=== PATIENT | female | born 1995 | race African-American/Black ===

== ENCOUNTER 2025-03-21 09:02 | Emergency (ER) | payer OTHER, SELFPAY ==
[2025-03-21 09:22] VITALS: BP 139/62; PULSE 98; RESP 16; TEMP 36.6; O2SAT 98; BMI 25.6
[2025-03-21 09:45] LABS: Appearance Urine Cloudy; Glucose Urine UA Negative (Negative); PH 6.5 (5.0-9.0); Specific Gravity - Urine 1.020 (1.005-1.025); UMIC TRIGGER UACC YES
[2025-03-21 09:46] LABS: UPreg QC Valid YES
[2025-03-21 09:47] LABS: UACC Culture Trigger YES
[2025-03-21 09:59] LABS: Cannabinoid Screen Urine POSITIVE (Not Detect)
--- NOTE | 2025-03-21 10:28 | ED_ITS ---
HPI - Medical Clearance General Chief complaint: Medical Clearance Stated complaint: medical clearance, preg test Time Seen by Provider: 03/21/25 10:28 Source: patient Mode of arrival: ambulatory Limitations: no limitations History of Present Illness ED Provider: Viviana Harrington PA-C HPI Narrative: Patient is a 30 year old assigned female at with a history of previous presenting to the emergency department today for medical clearance to enter the Cl program and a test. Patient states that she needs medical clearance to enter the Cl program and is also concerned she may be so she'd like to be tested. Patient denies any complaints at this time. Patient denies any abdominal pain, vaginal bleeding, or discharge. Related Information Previous Rx's ?Medication ?Instructions ?Recorded vit no.95-ferrous 1 tab PO DAILY #30 tabs 03/05 fumarate 28 mg-folic acid 800 mcg tablet () Allergies Allergy/AdvReac Type Severity Reaction Status Date / Time No Known Allergies Allergy Verified 03/21/25 09:24 Review of Systems Constitutional: Constitutional: Reports as per HPI Eyes: Eyes: Reports as per HPI ENT: Reports as per HPI Cardiovascular: Cardiovascular: Reports as per HPI Respiratory: Respiratory: Reports as per HPI Gastrointestinal: Gastrointestinal: Reports as per HPI Genitourinary: Genitourinary: Reports as per HPI Musculoskeletal: Musculoskeletal: Reports as per HPI Integumentary/Breasts: Skin/Breast: Reports as per HPI Neurologic: Reports as per HPI Psychiatric: Psychiatric: Reports as per HPI Endocrine: Endocrine: Reports as per HPI Hematologic/Lymphatic: Hematologic/Lymphatic: Reports as per HPI Allergic/Immunologic: Allergic/Immunologic: Reports as per HPI [facility] Past Medical History Attestation statement: The following information was validated with the patient. Source: old records reviewed and nursing notes reviewed Social History Social History Advance Directives: No Advance Directives Information Provided: No Physical Exam Vital Signs: Vital Signs: Last Vital Signs Temp 97.9 F 03/21/25 11:10 Pulse 98 03/21/25 11:10 Resp 16 03/21/25 11:10 BP 139/62 03/21/25 11:10 Pulse Ox 98 03/21/25 11:10 O2 Del Method Room Air 03/21/25 11:10 BMI result Body Mass Index 25.6 Const: General: cooperative, no acute distress, alert and awake Nutritional Appearance: well nourished Orientation/consciousness: patient oriented x3 HEENT: Head: Yes normal to inspection and Yes atraumatic Ears: hearing grossly normal bilaterally and external ears normal General nose exam: Normal external nose present, no nasal discharge noted and no epistaxis Face and sinus: Yes normal facial exam, No abrasion and No laceration Mouth: Normal oral and palatal mucosa present, no drooling and no muffled voice Eyes: General: appearance normal, both eyes and all related structures Periorbital: periorbital findings normal Eyelids: Yes eyelids normal Conjunctivae: conjunctivae normal Pupils: Equal, round and reactive pupils present EOM: EOMs intact bilaterally Neck: Neck: Yes normal visual inspection and Yes full ROM Resp: Effort & Inspection: normal respiratory effort and able to speak in complete sentences Neuro: General: patient oriented x3, moves all extremities and CN's II-XI intact bilaterally Cranial nerves: Yes Equal, round and reactive pupils present Cognition (Neuro): normal cognition Extrem: General: Yes normal to inspection, Yes full ROM and Yes capillary refill normal Psych: Appearance: grossly normal Mental Status: mental status grossly normal Affect: normal affect Attitude: cooperative Thought process: Normal thought process present Thought content: Normal thought content present Insight: Good insight present (Psych) Medical Decision Making Medical Decision Making MDM Narrative: Patient is a 30 year old assigned female at with a history of previous presenting to the emergency department today for medical clearance to enter the Cl program and a test. Patient's physical exam was as noted in the physical exam portion of this note. Patient's urine showed small leuks with 6-10 WBC but is grossly contaminated with >20 squamous cells. Given absence of symptoms - and contaminated sample, will await culture. Patient's urine test was positive. I explained my physical exam findings as well as all test results to the patient. I answered all questions asked by the patient. I stressed the importance of the patient taking her medication as directed (either prescribed or as the over the counter packaging recommends). I stressed the importance of the patient following up with her primary care provider and an OBGYN. I stressed the importance of the patient returning to the emergency department immediately if she were to develop any vaginal bleeding, vaginal discharge, dizziness, shortness of breath, difficulty breathing, chest pain, blurry vision, loss of vision, nausea, vomiting, abdominal pain, fever, chills, back pain, or any other complaints. Patient verbalized agreement and understanding with this treatment plan and discharge. Differential Diagnosis Differential Diagnoses: The differential diagnosis associated with the presentation includes Medical clearance Admission/Observation Consideration of admission/observation: Escalation of care including admission/observation considered Patient would have been admitted to the hospital had her work up had any findings where hospital admission was appropriate and her clinical presentation warranted hospital admission. Lab Data [facility] Lab Attestation statement: I reviewed the patient's lab results. My interpretation of these results are in the [facility] Rationale portion of this note. Labs: Lab Results 03/21/25 Range/Units 09:34 Urine Color Yellow Urine Appearance Cloudy Urine pH 6.5 (5.0-9.0) Ur Specific [place] 1.020 (1.005-1.025) Urine Protein Negative (Neg-Trace) mg/dL Urine Glucose (UA) Negative (Negative) mg/dL Urine Ketones Negative (Negative) mg/dL Urine Blood Negative (Negative) Urine Nitrite Negative (Negative) Ur Leukocyte Esterase Small (1+) H (Negative) Urine RBC 0-2 (0-2) /HPF Urine WBC 6-10 H (0-5) /HPF Ur Squamous Epith Cells >20 (0-2) /HPF Urine Bacteria 4+ (None Seen) Hyaline Casts 0-2 (0-2) /LPF Urine Test POSITIVE H (NEGATIVE) Urine Opiates Screen Not Detected (Not Detect) Ur Buprenorphine Scrn Not Detected (Not Detect) ng/mL Ur Oxycodone Screen Not Detected (Not Detect) ng/mL Urine Methadone Screen Not Detected (Not Detect) ng/mL Urine Fentanyl Screen Not Detected (Not Detect) Ur Barbiturates Screen Not Detected (Not Detect) Ur Phencyclidine Scrn Not Detected (Not Detect) Ur Amphetamines Screen Not Detected (Not Detect) U Benzodiazepines Scrn Not Detected (Not Detect) Urine Cocaine Screen Not Detected (Not Detect) U Marijuana (THC) Screen POSITIVE H (Not Detect) Discharge Plan Discharge Clinical Impression: , Normal physical examination Patient Disposition: Home, Self-Care Instructions: (ED), Normal Exam (ED) Additional Instructions: Your medically cleared to attend your program. You are . Please take your vitamin and follow up with an OBGYN. IF you are prescribed home medications and/or you are taking over the counter medications at home - it is very important you continue to do so as prescribed / directed unless told otherwise. Follow up with a primary care provider. Return to the emergency department immediately if your symptoms worsen or if you develop any numbness, tingling, dizziness, shortness of breath, difficulty breathing, chest pain, blurry vision, loss of vision, nausea, vomiting, abdominal pain, fever, chills, back pain, or any other complaints. If you do not have an OBGYN - call any of the below numbers to establish and follow up with an OBGYN provider. [facility] OBGYN [address] [facility] [phone] [facility] [address] [facility] [address] [phone] OBGYN and Midwifery [address] [phone] If you do not have a primary care provider - call any of the below numbers to establish and follow up with a primary care provider. [facility] Primary Care ([place]) [phone] [facility], [address] [facility] Primary Care ([address] [place]) [phone] [place] [address], [address] [facility], [address] [facility] Primary Care ([address] [place]) [phone] [place] [address], [address] [facility], [address] [facility] Primary Care ([place]) [phone] [place] [address] [facility], [address] [facility] Family Medicine [phone] [facility] [place], [address] Please see the information below about our Patient Portal. If you are not yet enrolled in the [facility] Patient Portal, you will receive an enrollment email invitation following your visit to any [facility] setting. You may also self-enroll in the Patient Portal by visiting our website: [email or web address] The following information is required to access the Patient Portal: - Your [facility] Medical Record Number - Your personal home email address (must match what is in your electronic medical record, Registration staff can assist with this) - Name - Date of Capabilities of the Patient Portal: - Message some providers - View upcoming appointments - Access your health summary, medical history, and visit history - View current conditions and allergies - View procedure and lab results - View your medications, including guidelines, side effects, and precautions - Complete pre-appointment questionnaires requested by your provider - Ready summary reports of your office visits and procedures To access the Patient Portal Mobile Sukhjinder, follow these directions: - Search [employer]ossierView in the S[employer]hj[employer] Store or [employer] Store - Download the Sukhjinder - Search for [facility] - Enter your login/password Prescriptions: New PNV no.95-ferrous fumarate-FA [] 28 mg iron- 800 mcg tablet 1 tab PO DAILY Qty: 30 0RF Interventions: ED Discharge Assessment Last Done: 03/21/25 11:10 Discharge Date/Time: 03/21/25 11:11 Print Language: Mauritanian
--- OUTSIDE RECORDS SUMMARY | 2025-03-21 10:57 | XMS_ITS ---
Author Name [facility] Organization Unknown Care Team Organization Name Specialty Phone Email Start Date End Da te [facility] Jewell Gama Primary Care 09/16/2022 024 [facility] JEANNINE PINA Primary Care 03/19/2022
--- OUTSIDE RECORDS SUMMARY | 2025-03-21 10:57 | XMS_ITS | Encounter Summary ---
Author Organization [facility] [place] [address] Care Team Providers Care Outsole Splicer Name Role Phone Jewell Gama MD Primary Care Provider [phone] Encounter Details Date Type Department Care Team (Late st Contact Info) Description 11/28/2024 Lab Requisition [facility] - Main Lab [address] [place] [id number] Trudi Campo, [facility] [address] [place] [address] Other [facility] (current) drug therapy Social History Tobacco Use Types Packs/Day Years Used Date Smoking Tobacco: Former Smokeless Tobacco: Never Alcohol Use Standard Drinks/Week Comments No 0 (1 standard drink = 0.6 oz pur e alcohol) Comments Unknown Sex and Gender Information Value Date Recorded Sex Assigned at Not on file Legal Sex Female 8:22 AM EST Gender Identity Not on file Sexual Orientation Not on file documented as of this encounter Plan of Treatment Not on file documented as of this encounter Procedures Procedure Name Priority Date/Time Associated Diagnosis Comments BASIC METABOLIC PANEL Routine 11/28/2024 7:00 AM EDT Other [facility] (current) drug therapy documented in this encounter Results * Basic metabolic panel (11/28/2024 7:00 AM EDT) Sodium 138 133 - 145 mmol/L LAB CHEMISTRY METHOD 11/28/2024 10:24 AM [facility] Potassium 4.0 3.5 - 5.5 mmol/L LAB CHEMISTRY METHOD 11/28/2024 10:24 AM [facility] Chloride 106 96 - 110 mmol/L LAB CHEMISTRY METHOD 11/28/2024 10:24 AM [facility] CO2 29 21 - 32 mmol/L LAB CHEMISTRY METHOD 11/28/2024 10:24 AM [facility] Anion Gap 3 3 - 11 LAB CHEMISTRY METHOD 11/28/2024 10:24 AM [facility] Glucose 81 70 - 100 mg/dL LAB CHEMISTRY METHOD 11/28/2024 10:24 AM [facility] BUN 8 5 - 25 mg/dL LAB CHEMISTRY METHOD 11/28/2024 10:24 AM [facility] Creatinine 0.51 0.50 - 1.10 mg/dL LAB CHEMISTRY METHOD 11/28/2024 10:24 AM [facility] eGFR 129 >=60 mL/min/1. 73m2 LAB CHEMISTRY METHOD 11/28/2024 10:24 AM [facility] Comment:Calculation based on the Chronic Kidney Disease Epidemiology Collaboration (CKD-EPI) equation refit without adjustment for race. BUN/Creatinine Ratio 15.7 LAB CHEMISTRY METHOD 11/28/2024 10:24 AM [facility] Calcium 8.9 8.5 - 10.5 mg/dL LAB CHEMISTRY METHOD 11/28/2024 10:24 AM [facility] Blood Venous blood specimen / Unknown Venipuncture / Unknown 11/28/2024 7:00 AM EDT 11/28/2024 9:41 AM EDT us Trudi Campo JAVA DEVELOPMENT MANAGER LAB BLOOD ORDERABLES Final Result [facility] [address] [place], [place] [address] [phone] documented in this encounter Visit Diagnoses Diagnosis Other parts counterman (current) drug therapy documented in this encounter Care Teams Outsole Splicer Relationship Specialty Start Date End Date Jewell Gama MD [address] [place] [phone] PCP - General Internal Medicine 07/14/24 documented as of this encounter
--- OUTSIDE RECORDS SUMMARY | 2025-03-21 10:57 | XMS_ITS | Clinical Summary ---
Author Organization [facility] Address [address] [place] [address] Care Team Providers Care Party Host Name Role Phone Unavailable Primary Care Provider Unavailabl e Source Comments PLEASE NOTE, if this patient is a minor, it may be UNLAWFUL to discuss sensitive information that is contained in these records (such as FAMILY PLANNING, MENTAL HEALTH or SUBSTANCE ABUSE) with the minor patient's parent or other person without the patient's specific authorization.[facility] Medications ibuprofen 800 mg tabletIndicatio ns:Tooth pain Take 1 Tab by mouth 3 (three) times daily as needed for pain 21 Tab 07/12/2019 Active ibuprofen 600 mg tablet Take 1 Tablet by mouth 4 (four) times daily as needed for pain 20 Tablet 03/16/2021 Active amoxicillin (AMOXIL) 500 mg capsule Take 1 Capsule by mouth 3 (three) times daily 21 Capsule 03/16/2021 Active ibuprofen 800 mg tabletIndicatio ns:Oral infection Take 1 Tablet by mouth 3 (three) times daily as needed for pain . Do NOT take more than 4 (four) tablets in 24 (twenty four) hours. 21 Tablet 04/16/2021 Active Social History Tobacco Use Types Packs/Day Years Used Date Smoking Tobacco: Never Assessed Social Connections Answer Date Recorded Connectedness 0 01/31/2024 Financial Resource Strain Answer Date R ecorded Financial Resource Strain 0 2018 Stress Answer Date Recorded Stress 0 02/08/2019 Physical Activity Answer Date Recorded Physical Activity 0 02/08/2019 Food Insecurity Answer Date Recorded Food 0 02/05/2024 Transportation Needs Answer Date Record ed Transportation 0 02/08/2019 Housing Stability Answer Date Recorded Housing 0 02/08/2019 Safety and Environment Answer Date John rded Safety 0 02/08/2019 Utilities Answer Date Recorded Utilities 0 02/08/2019 Employment Answer Date Recorded Stress 0 01/31/2024 Comments Unknown Sex and Gender Information Value Date Recorded Sex Assigned at Not on file Legal Sex Female 9:05 AM PDT Gender Identity Not on file Sexual Orientation Not on file Plan of Treatment Not on file Insurance [place] D[place] [facility] [place] [id number]
--- OUTSIDE RECORDS SUMMARY | 2025-03-21 10:57 | XMS_ITS | Clinical Summary ---
Author Organization [address] Address [address] [place] [phone] Phone Care Team Providers Care Game Manager Name Role Phone Jewell Gama MD Primary Care Provider [phone] Allergies Active Allergy Reactions Criticality Noted Date Comments Other 07/19/2014 Seasonal Allergies Other Reaction(s): Runny Nose/Rhinitis Cough, dry nose or throat Medications acetaminophen (TYLENOL) 325 mg capsule TAKE 2 CAPSULES BY MOUTH EVERY 4 HOURS NEEDED FOR PAIN 08/15/2022 Active fluticasone propionate (FLONASE) 50 mcg/actuation nasal spray SPRAY 2 SPRAYS INTO EACH NOSTRIL EVERY DAY SHAKE GENTLY. CLEAN TIP AND REPLACE CAP AFTER USE. 48 mL 10/12/2024 Active Active Problems Problem Noted Date Diagnosed Date Seasonal allergies 07/19/2014 Anxiety 01/12/2014 Depression 01/12/2014 Migraine 01/12/2014 Immunizations Immunization Administration Dates Next Due DTP 12/28/1998, 5,1994,1993 [id number] (Pentacel) 2mo to less than 5yo 10/16/1995,1994,1994,1993 HPV, Quadrivalent 06/20/2011,09/04/2010,06/14/19 11 Hepatitis B Pediatric (Enger ix B; Recombivax HB) to less than 20 yo 1994,1994,1994 IPV Inactivated polio (Ipol) 6wks and older 12/28/1998,03/15/1995,1994,1994 Influenza trivalent, with preservative (Fluzone; Afluria) 6mo and older 02/27/2022 Influenza, Unspecified 02/27/2022 MMR, measles mumps and rubel la Live (Priorix; M-M-R II) 12mo and older 12/28/1998,01/17/1995 Tdap Tetanus diptheria acell ular pertussis (Boostrix; Adacel) 7yo and older 04/23/2022,04/22/2011 Varicella live (Varivax) 12m o and older 06/20/2011,07/14/1998 Surgical History Surgery Date Site/Laterality Comments OTHER SURGICAL HISTORY PROCEDURE: DENIES PREVIOUS SURGERY Medical History Medical History Date Comments Anxiety 01/12/2014 DX:Anxiety Depression 01/12/2014 DX:Depression Migraine 01/12/2014 DX:Migraine Seasonal allergies 07/19/2014 DX:Seasonal a llergies Family History Medical History Relation Name Comments Multiple myeloma Father No Known Problems Mother Relation Name Status Comments Father (Age 53) Mother Alive Social History Tobacco Use Types Packs/Day Years Used Date Smoking Tobacco: Former Smokeless Tobacco: Never Alcohol Use Standard Drinks/Week Comments No 0 (1 standard drink = 0.6 oz pur e alcohol) Comments Unknown Sex and Gender Information Value Date Recorded Sex Assigned at Not on file Legal Sex Female 8:22 AM EST Gender Identity Not on file Sexual Orientation Not on file Obstetrics History Last Filed Vital Signs Vital Sign Reading Time Taken Comments Blood Pressure 110/78 07/15/2024 2:13 PM EST Pulse 120 07/15/2024 2:13 PM EST Temperature 36.7 C (98.1 F) 07/15/2024 2:13 PM EST Respiratory Rate 14 07/15/2024 2:13 PM EST Oxygen Saturation - - Inhaled Oxygen Concentration - - Weight 52.4 kg (115 lb 8 oz) 07/15/2024 2:13 PM EST Height 157.5 cm (5' 2 ) 07/15/2024 2:13 PM EST Body Mass Index 21.13 07/15/2024 2:13 PM EST Plan of Treatment Health Maintenance Due Date Last Done Comments Hepatitis B Vaccines (4 of 4 - 4-dose series) 1994 1994, 1994, 1994 Cervical Cancer Screening: Pap Smear 2015 HIV Screening 04/20/2022 Hepatitis C Screening 04/20/2022 Social Influencers of Health Screening 04/20/2022 Depression Screening 05/12/2024 COVID-19 Vaccine ( season) 2025 04/02/2022 Influenza Vaccine (#1) 2025 02/27/2022, 2021 Cholesterol Screening (Lipid Panel) 11/27/2029 11/27/2024, 06/17/2022 DTaP,Tdap,and Td Vaccines (8 - Td or Tdap) 04/23/2032 04/23/2022, 04/22/2011, 12/28/1998, Additional history exists RSV Immunization Adult Patients (1 - 1-dose 75+ series) 2069 HIB Vaccines Completed 10/16/1995, 07/11, 1994, Additional history exists IPV Vaccines Completed 12/28/1998, 10/1995, 03/15/1995, Additional history exists MMR Vaccines Completed 12/28/1998, 01/17/1995 HPV Vaccines Completed 06/20/2011, 08/11, 06/14/2010 Varicella Vaccines Completed 06/20/2011, 07/14/1998 Hepatitis A Vaccines Aged Out No long er eligible based on patient's age to complete this topic Meningococcal ACWY Vaccine Aged Out N o longer eligible based on patient's age to complete this topic Meningococcal B Vaccine Aged Out No l onger eligible based on patient's age to complete this topic Pneumococcal Vaccine: Pediatrics (0 to 5 Years) and At-Risk Patients (6 to 49 Years) Aged Out No longer eligible based on patient's age to complete this topic RSV Immunization Patients Under 20 months Aged Out No longer eligible based on patient's age to complete this topic Procedures Procedure Name Priority Date/Time Associated Diagnosis Comments LIPID PANEL WITH REFLEX TO DIRECT LDL Routine 11/27/2024 7:00 AM EDT Other group home (current) drug therapy from Last 3 Months or Most Recently Relevant to Health Maintenance Results * (ABNORMAL) Lipid panel with reflex to direct LDL (11/27/2024 7:00 AM EDT) Cholesterol 146 0 - 200 mg/dL LAB CHEMISTRY METHOD 11/27/2024 1:40 PM EDT [facility] Triglycerides 82 0 - 150 mg/dL LAB CHEMISTRY METHOD 11/27/2024 1:40 PM EDT [facility] HDL 35(L) >=40 mg/dL LAB CHEMISTRY METHOD 11/27/2024 1:40 PM EDT [facility] LDL Calculated 95 0 - 100 mg/dL LAB CHEMISTRY METHOD 11/27/2024 1:40 PM EDT [facility] VLDL Cholesterol Ramakrishna 16.4 mg/dL LAB CHEMISTRY METHOD 11/27/2024 1:40 PM EDT [facility] Non HDL Chol. (LDL+VLDL) 111 <145 mg/dL LAB CHEMISTRY METHOD 11/27/2024 1:40 PM EDT [facility] Chol/HDL Ratio 4.2 0.0 - 4.4 LAB CHEMISTRY METHOD 11/27/2024 1:40 PM EDT [facility] Blood Venous blood specimen / Unknown Venipuncture / Unknown 11/27/2024 7:00 AM EDT 11/27/2024 12:58 PM EDT us Mariam Decker NP LAB BLOOD ORDERABLES Final Resul t [facility] [address] [place] [address], from Last 3 Months or Most Recently Relevant to Health Maintenance Insurance [facility] Care Teams Game Manager Relationship Specialty Start Date End Date Jewell Gama MD [address] [place] [phone] PCP - General Internal Medicine 07/14/24
--- OUTSIDE RECORDS SUMMARY | 2025-03-21 10:57 | XMS_ITS | Encounter Summary ---
Author Organization [facility] [place] [address] Care Team Providers Care Octave Board Racker Name Role Phone Jewell Gama MD Primary Care Provider [phone] Encounter Details Date Type Department Care Team (Late st Contact Info) Description 11/27/2024 Lab Requisition [facility] - Main Lab [address] [facility] [place] [address] Mariam Decker NP [address] [place] [address] Other fci (current) drug therapy Social History Tobacco Use [...] LDL Routine 11/27/2024 7:00 AM EDT Other fci (current) drug therapy HEMOGLOBIN A1C Routine 11/27/2024 7:00 AM EDT Other fci (current) drug therapy GLUCOSE, RANDOM Routine 11/27/2024 7:00 AM EDT Other fci (current) drug therapy documented in this encounter Results * Hemoglobin A1c (11/27/2024 7:00 AM EDT) Pathologist [facility] Hemoglobin A1C 5.5 <6.5 % LAB CHEMISTRY METHOD 11/28/2024 11:33 AM EDT [facility] Mean Bld Glu Estim. 111 mg/dL LAB CHEMISTRY METHOD 11/28/2024 11:33 AM EDT [facility] Blood Venous blood specimen / Unknown Venipuncture / Unknown 11/27/2024 7:00 AM EDT 11/27/2024 12:58 PM EDT Mariam Decker NP LAB BLOOD ORDERABLES Final Resul t [facility] [address] [place] [address], * (ABNORMAL) Lipid panel with reflex to direct LDL (11/27/2024 7:00 AM EDT) [facility] Cholesterol 146 0 - 200 mg/dL LAB CHEMISTRY METHOD 11/27/2024 1:40 PM EDT [facility] Triglycerides 82 0 - 150 mg/dL LAB CHEMISTRY METHOD 11/27/2024 1:40 PM EDT [facility] HDL 35(L) >=40 mg/dL LAB CHEMISTRY METHOD 11/27/2024 1:40 PM EDT [facility] LDL Calculated 95 0 - 100 mg/dL LAB CHEMISTRY METHOD 11/27/2024 1:40 PM EDT [facility] VLDL Cholesterol Ramakrishna 16.4 mg/dL LAB CHEMISTRY METHOD 11/27/2024 1:40 PM EDT [facility] Non HDL Chol. (LDL+VLDL) 111 <145 mg/dL LAB CHEMISTRY METHOD 11/27/2024 1:40 PM EDT [facility] Chol/HDL Ratio 4.2 0.0 - 4.4 LAB CHEMISTRY METHOD 11/27/2024 1:40 PM EDT [facility] Blood Venous blood specimen / Unknown Venipuncture / Unknown 11/27/2024 7:00 AM EDT 11/27/2024 12:58 PM EDT Mariam Decker [employer] LAB BLOOD ORDERABLES Final Resul t Performing Organization Address [facility]/ZIP Co de Phone Number [facility] [address] [place] [address], [place] [phone] * (ABNORMAL) Glucose, random (11/27/2024 7:00 AM EDT) Glucose 64(L) 70 - 100 mg/dL LAB CHEMISTRY METHOD 11/27/2024 1:39 PM EDT [facility] Blood Venous blood specimen / Unknown Venipuncture / Unknown 11/27/2024 7:00 AM EDT 11/27/2024 12:58 PM EDT Mariam Decker NP LAB BLOOD ORDERABLES Final Resul t Performing Organization Address City/[facility] Co de Phone Number [facility] [address] [place] [address], [place] [phone] documented in this encounter Visit Diagnoses Diagnosis Other fci (current) drug therapy documented in this encounter Care Teams Octave Board Racker Relationship Specialty Start Date End Date Jewell Gama MD [address] [place] [phone] PCP - General Internal Medicine 07/14/24 documented as of this encounter
[2025-03-21 11:10] VITALS: BP 139/62; PULSE 98; RESP 16; TEMP 36.6; O2SAT 98
== END 2025-03-21 11:11 | disposition home or self-care (01) ==
PROVIDERS: Emergency Provider Emergency Medicine
DX: Z02.89 Encounter for other administrative examinations (principal); Z32.01 Encounter for pregnancy test, result positive
CPT/HCPCS: 80307; 81001; 81025; 87086; 99282

== ENCOUNTER 2025-03-31 12:51 | Emergency (ER) | payer OTHER, SELFPAY ==
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
--- NOTE | ~2025-03-31 | US_ITS ---
CLINICAL HISTORY: , abd pain, ?IUP US OB 1st Trimester transabdominal and transvaginal Comparison: None provided Findings: Single intrauterine gestational sac. MSD: 0.7 cm. CRL: No pole. EGA: 5 weeks, 2 days. HU: Not reported. Normal yolk sac . Cardiac activity: No pole or cardiac activity. Recommend follow-up in 2-3 weeks. No subchorionic bleed. Right ovary is not visualized. Left ovary 2.8 x 2.1 x 2.6 cm. 1.8 cm dominant follicle. IMPRESSION: Single intrauterine gestational sac estimated 5 weeks, 2 days gestational age by today's ultrasound criteria No pole or cardiac activity, recommend follow-up 2-3 weeks This document has been electronically signed by: Fercho Yeager MD on 03/31/2025 19:51:35
[2025-03-31 13:01] VITALS: BP 132/76; PULSE 96; O2SAT 100
[2025-03-31 13:19] VITALS: BP 110/55; PULSE 82; RESP 20; TEMP 36.7; O2SAT 99; BMI 23.7
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
[2025-03-31 13:50] LABS: MANUAL DIFF FLAG NO
[2025-03-31 13:55] LABS: Hematocrit 35.1 % (37.0-47.0); Hemoglobin 11.5 g/dl (12.0-16.0); Imm Gran Abs Auto 0.01 X10*3/uL (0.00-0.03); Imm Gran Pct Auto 0.2 % (0.0-0.4); Lymphocytes Absolute Auto 2.9 X10*3/uL (1.2-4.9); Mean Corpuscular HGB Conc 32.8 g/dl (31.0-35.0); Mean Corpuscular Hemoglobin 29.3 pg (27.0-33.0); Mean Corpuscular Volume 89.3 fL (80.0-98.0); NRBC Abs Auto 0.000 X10*3/uL (0.0-0.012); NRBC Pct Auto 0.0 /100WBC (0.0-0.2); Platelet Count 299 X10*3/uL (160-400); Red Blood Count 3.93 X10*6/uL (4.20-5.50); White Blood Count 6.1 X10*3/uL (4.8-10.8)
[2025-03-31 14:01] LABS: IDNOW Serial# 08D9AD1C; Strep A Nucleic Acid Negative (Negative)
[2025-03-31 14:08] LABS: Appearance Urine Clear; Glucose Urine UA Negative (Negative); PH 6.0 (5.0-9.0); Specific Gravity - Urine 1.020 (1.005-1.025); UMIC TRIGGER UACC YES
[2025-03-31 14:10] LABS: UPreg QC Valid YES
[2025-03-31 14:12] LABS: Alanine Aminotransferase 11 U/L (0-31); Albumin Level 4.2 g/dL (3.5-5.0); Alkaline Phosphatase 55 U/L (39-117); Anion Gap 10 (12-20); Aspartate Amino Transferase 27 U/L (5-31); Blood Urea Nitrogen 9 mg/dL (9-16); Calcium 8.9 mg/dL (8.4-10.2); Carbon Dioxide 24 mmol/L (22-29); Chloride 108 mmol/L (96-108); Creatinine Clr Calc Pharmacy 107.9; Estimated Glomerular Filt Rate > 60; Lipase 16 U/L (8-78); Potassium 3.5 mmol/L (3.3-5.1); Sodium 138 mmol/L (135-145); Total Protein 6.9 g/dL (6.5-8.0)
[2025-03-31 14:23] LABS: UACC Culture Trigger YES
[2025-03-31 14:30] LABS: Resp Syncy Virus RNA Qual PCR NEGATIVE (Negative); SARS COV2 PCR INHOUSE NEGATIVE (Negative)
[2025-03-31 18:15] VITALS: BP 113/55; PULSE 82; RESP 14; TEMP 36.8; O2SAT 97
[2025-03-31 19:43] VITALS: BP 113/61; PULSE 73; RESP 18; TEMP 36.9; O2SAT 100
--- OUTSIDE RECORDS SUMMARY | 2025-03-31 19:57 | XMS_ITS | Encounter Summary ---
Author Organization [facility] Address [address] [place] [address] Care Team Providers Care Health Safety Coordinator Name Role Phone Jewell Gama MD Primary Care Provider Encounter Details Date Type Department Care Team (Late Contact Info) Description 11/28/2024 Lab Requisition [facility] - Main Lab [address] [facility] [place] [phone] Trudi Campo, [facility] [address] [place] [address] Other fci (current) drug therapy Social History [...] as of this encounter Plan of Treatment Upcoming Encounters Date Type Department Care Team ([facility] Contact Info) Description 04/08/2025 11:00 AM EST Office Visit Adult Medicine [facility] [address] [place] [address] Richard James NP [address] [place] [address] 04/14/2025 9:00 AM EST Office Visit [address] [phone] Jewell Gama MD [address] [place] [address] 04/25/2025 11:30 AM EST Office Visit General Surgery [address] [place] [phone] Edgar Liu MD [address] [place] [phone] 11/29/2025 3:00 PM EDT Office Visit [address] [phone] Jewell Gama MD [address] [place] [address] documented as of this encounter Procedures Procedure Name Priority Date/Time Associated Diagnosis Comments BASIC METABOLIC PANEL Routine 11/28/2024 7:00 AM EDT Other intermodal customer service (current) drug therapy documented in this encounter Results * Basic metabolic panel (11/28/2024 7:00 AM EDT) Sodium 138 133 - 145 mmol/L LAB CHEMISTRY METHOD 11/28/2024 10:24 AM [facility] Potassium 4.0 3.5 - 5.5 mmol/L LAB CHEMISTRY METHOD 11/28/2024 10:24 AM [facility] Chloride 106 96 - 110 mmol/L LAB CHEMISTRY METHOD 11/28/2024 10:24 AM [facility] CO2 29 21 - 32 mmol/L LAB CHEMISTRY METHOD 11/28/2024 10:24 AM [facility] Anion Gap 3 3 - 11 LAB CHEMISTRY METHOD 11/28/2024 10:24 AM EDT [facility] Glucose 81 70 - 100 mg/dL LAB CHEMISTRY METHOD 11/28/2024 10:24 AM EDT [facility] BUN 8 5 - 25 mg/dL LAB CHEMISTRY METHOD 11/28/2024 10:24 AM EDT [facility] Creatinine 0.51 0.50 - 1.10 mg/dL LAB CHEMISTRY METHOD 11/28/2024 10:24 AM EDT [facility] eGFR 129 >=60 mL/min/1. 73m2 LAB CHEMISTRY METHOD 11/28/2024 10:24 AM EDT [facility] Comment:Calculation based on the Chronic Kidney Disease Epidemiology Collaboration (CKD-EPI) equation refit without adjustment for race. BUN/Creatinine Ratio 15.7 LAB CHEMISTRY METHOD 11/28/2024 10:24 AM EDT [facility] Calcium 8.9 8.5 - 10.5 mg/dL LAB CHEMISTRY METHOD 11/28/2024 10:24 AM EDT [facility] Blood Venous blood specimen / Unknown Venipuncture / Unknown 11/28/2024 7:00 AM EDT 11/28/2024 9:41 AM EDT Trudi Campo [facility] BLOOD ORDERABLES Final Result [facility] [address] [place] [address], documented in this encounter Visit Diagnoses Diagnosis Other fci (current) drug therapy documented in this encounter Care Teams Health Safety Coordinator Relationship Specialty Start Date End Date Jewell Gama MD [address] [place] [phone] PCP - General Internal Medicine 07/14/24 documented as of this encounter
--- OUTSIDE RECORDS SUMMARY | 2025-03-31 19:57 | XMS_ITS | Encounter Summary ---
Author Organization [facility] Address [address] [place] [address] Care Team Providers Care Demolition Engineer Name Role Phone Jewell Gama MD Primary Care Provider [phone] Encounter Details Date Type Department Care Team (Late Contact Info) Description 11/27/2024 Lab Requisition [facility] - Main Lab [address] [facility] [place] [address] Mariam Decker NP [address] [place] [address] Other vermin exterminator (current) drug therapy Social History Tobacco Use [...] Upcoming Encounters Date Type Department Care Team ([facility] Contact Info) Description 04/08/2025 11:00 AM EST Office Visit Adult Medicine [address] [phone] Richard James, XIOM[facility] [address] [place] [address] 04/14/2025 9:00 AM EST Office Visit Adult Medicine [address] [phone] Jewell Gama MD [address] [place] [address] 04/25/2025 11:30 AM EST Office Visit General Surgery [address] [place] [address] Edgar Liu MD [address] [place] [address] 11/29/2025 3:00 PM EDT Office Visit Adult Medicine [address] [phone] Jewell Gama MD [address] [place] [address] documented as of this encounter Procedures Procedure Name Priority Date/Time Associated Diagnosis Comments LIPID PANEL WITH REFLEX TO DIRECT LDL Routine 11/27/2024 7:00 AM EDT Other vermin exterminator (current) drug therapy HEMOGLOBIN A1C Routine 11/27/2024 7:00 AM EDT Other vermin exterminator (current) drug therapy GLUCOSE, RANDOM Routine 11/27/2024 7:00 AM EDT Other halfway (current) drug therapy documented in this encounter Results * Hemoglobin A1c (11/27/2024 7:00 AM EDT) Hemoglobin A1C 5.5 <6.5 % LAB CHEMISTRY METHOD 11/28/2024 11:33 AM EDT [facility] Mean Bld Glu Estim. 111 mg/dL LAB CHEMISTRY METHOD 11/28/2024 11:33 AM EDT [facility] Blood Venous blood specimen / Unknown Venipuncture / Unknown 11/27/2024 7:00 AM EDT 11/27/2024 12:58 PM EDT us Mariam Decker NP LAB BLOOD ORDERABLES Final Resul t Performing Organization Address City/[facility]/ZIP Co de Phone Number [facility] [address] [place] [address], [place] [phone] * (ABNORMAL) Lipid panel with reflex to direct LDL (11/27/2024 7:00 AM EDT) [facility] Signature Cholesterol 146 0 - 200 mg/dL LAB CHEMISTRY METHOD 11/27/2024 1:40 PM EDT [facility] Triglycerides 82 0 - 150 mg/dL LAB CHEMISTRY METHOD 11/27/2024 1:40 PM EDT [facility] HDL 35(L) >=40 mg/dL LAB CHEMISTRY METHOD 11/27/2024 1:40 PM EDT [facility] LDL Calculated 95 0 - 100 mg/dL LAB CHEMISTRY METHOD 11/27/2024 1:40 PM EDT [facility] VLDL Cholesterol Ramakrishna 16.4 mg/dL LAB CHEMISTRY METHOD 11/27/2024 1:40 PM EDT [facility] Non HDL Chol. (LDL+VLDL) 111 <145 mg/dL LAB CHEMISTRY METHOD 11/27/2024 1:40 PM EDT [facility] Chol/HDL Ratio 4.2 0.0 - 4.4 LAB CHEMISTRY METHOD 11/27/2024 1:40 PM EDT [facility] Blood Venous blood specimen / Unknown Venipuncture / Unknown 11/27/2024 7:00 AM EDT 11/27/2024 12:58 PM EDT Mariam Decker ELECTRONEURODIAGNOSTIC TECHNOLOGIST LAB BLOOD ORDERABLES Final Resul t Performing Organization Address [place]/[facility]/ZIP Co de Phone Number [facility] [address] [place] [address], [place] [phone] * (ABNORMAL) Glucose, random (11/27/2024 7:00 AM EDT) Glucose 64(L) 70 - 100 mg/dL LAB CHEMISTRY METHOD 11/27/2024 1:39 PM EDT [facility] Blood Venous blood specimen / Unknown Venipuncture / Unknown 11/27/2024 7:00 AM EDT 11/27/2024 12:58 PM EDT Mariam Decker ELECTRONEURODIAGNOSTIC TECHNOLOGIST LAB BLOOD ORDERABLES Final Resul t [facility] [address] [place] [address], documented in this encounter Visit Diagnoses Diagnosis Other halfway (current) drug therapy documented in this encounter Care Teams Demolition Engineer Relationship Specialty Start Date End Date Jewell Gama MD [address] [place] [phone] PCP - General Internal Medicine 07/14/24 documented as of this encounter
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
[2025-03-31 21:48] VITALS: BP 113/61; PULSE 73; RESP 18; TEMP 36.9; O2SAT 100
[2025-04-01 00:11] LABS: Bacterial Vaginosis PCR POSITIVE (Negative); Candida Group PCR NOT DETECTED (Not Detect); Candida glab krusei PCR NOT DETECTED (Not Detect); Trichomonas vaginalis PCR NOT DETECTED (Not Detect)
[2025-04-01 00:43] LABS: CT PCR NOT DETECTED (Not Detect.); NG PCR NOT DETECTED (Not Detect.)
== END 2025-03-31 21:50 | disposition home or self-care (01) ==
PROVIDERS: Physician Assistant; Emergency Provider Emergency Medicine
DX: O26.891 Other specified pregnancy related conditions, first trimester (principal); R10.9 Unspecified abdominal pain; B34.9 Viral infection, unspecified; Z03.818 Encounter for observation for suspected exposure to other biological agents ruled out
CPT/HCPCS: 76801; 80053; 81001; 81025; 81515; 83690; 84702; 85025; 87086; 87491; 87591; 87637; 87651; 99284

== ENCOUNTER → 2025-03-31 18:51 | Outpatient (BNV) | payer OTHER, SELFPAY | PROVIDERS: Emergency Provider Emergency Medicine; Visit Provider Radiology Diagnostic Radiology | DX: O26.891 Other specified pregnancy related conditions, first trimester (principal); R10.9 Unspecified abdominal pain; Z3A.01 Less than 8 weeks gestation of pregnancy | CPT/HCPCS: 76801; 76817 ==